=== PATIENT | female | born 1975 | race Two or more races ===

== ENCOUNTER → 2019-01-09 | Outpatient (CLI) | payer BC | END | disposition home or self-care (01) | LOC: RAD 08:25 | PROVIDERS: ATTEND Family Medicine | DX: M79.672 Pain in left foot (principal) ==

== ENCOUNTER 2020-06-06 21:12 | Emergency (ER) | payer BC ==
[~2020-06-06] VITALS: Ht 162.6 cm; Wt 81.3 kg
[2020-06-06 21:54] LABS: BASOPHILS % (AUTO) 0 % (0-1); EOSINOPHILS % (AUTO) 2 % (1-7); LYMPHOCYTES % (AUTO) 17 % (22-44); MEAN CORPUSCULAR HEMOGLOBIN 21.5 pg (27.0-34.8); MEAN CORPUSCULAR HGB CONC 31.7 g/dL (32.4-35.8); MEAN PLATELET VOLUME 8.6 fL (7.4-10.4); MONOCYTES % (AUTO) 8 % (2-9); NEUTROPHILS % (AUTO) 73 % (42-75); PLATELET COUNT 238 x10^3/uL (130-400); RED BLOOD COUNT 4.81 x10^6/uL (3.82-5.3); RED CELL DISTRIBUTION WIDTH 16.6 % (9.6-15.2)
[2020-06-06 21:56] LABS: MD NO
[2020-06-06] MEDS ORDERED: KETOROLAC 30 MG/1 ML ONE (21:56)
[2020-06-06] MEDS ORDERED: DIPHENHYDRAMINE 50 MG/ML, 1ML ONE (21:56)
[2020-06-06] MEDS ORDERED: ONDANSETRON 2MG/ML, 2ML ONE (21:57)
[2020-06-06] MEDS ORDERED: SODIUM CHLORIDE 0.9% 1,000ML IVBOLUS ONE (22:00)
[2020-06-06] MEDS ORDERED: ONDANSETRON 2MG/ML, 2ML IVPush ONE (22:00)
[2020-06-06] MEDS ORDERED: KETOROLAC 30 MG/1 ML IVPush ONE (22:00)
[2020-06-06] MEDS ORDERED: DIPHENHYDRAMINE 50 MG/ML, 1ML IVPush ONE (22:00)
[2020-06-06 22:05] LABS: ALANINE AMINOTRANSFERASE 21 U/L (12-78); ALBUMIN 3.4 g/dL (3.4-5.0); ANION GAP 6 mmol/L (5-15); CALCIUM 7.8 mg/dL (8.5-10.1); CHLORIDE 108 mmol/L (98-107); CREATININE 0.88 mg/dL (0.55-1.02)
[2020-06-06 22:09] LABS: ALKALINE PHOSPHATASE 110 U/L (45-117); BILIRUBIN,TOTAL 1.2 mg/dL (0.2-1.0); TOTAL PROTEIN 7.3 g/dL (6.4-8.2)
[2020-06-06 22:20] LABS: MICROSCOPIC AUTO
[2020-06-07 00:03] VITALS: BP 116/60
== END 2020-06-07 00:06 | disposition home or self-care (01) ==
LOC: ED 06-07
DX: K29.00 Acute gastritis without bleeding (principal); Z20.822 Contact with and (suspected) exposure to COVID-19; R11.2 Nausea with vomiting, unspecified; R10.13 Epigastric pain; M79.10 Myalgia, unspecified site
CPT/HCPCS: 36415; 71045; 76700; 80053; 81001; 83690; 84703; 85025; 87086; 93005; 96361; 96374; 96375; 99285; J1200; J1885; J2405; J7030; U0003